=== PATIENT | male | born 1950 | race Caucasian/White ===

== ENCOUNTER 2021-08-08 10:03 | Outpatient (CLI) | payer MEDICARE, BC | END 2021-08-08 23:59 | disposition home or self-care (01) | LOC: RAD 10:03 | PROVIDERS: ATTEND Nurse Practitioner Family | DX: S06.9X5S Unspecified intracranial injury with loss of consciousness greater than 24 hours with return to pre-existing conscious level, sequela (principal); X58.XXXS Exposure to other specified factors, sequela | CPT/HCPCS: 95816 ==